=== PATIENT | female | born 1955 ===

== ENCOUNTER 2017-08-10 01:51 | Emergency (ER) | payer MEDICAID ==
--- NOTE | 2017-08-10 01:58 | C.PDOC ---
History Of Present Illness 61 year old female presents to the ED c/o sudden onset of sharp stabbing RLQ and right flank pain associated with nausea and vomiting. Patient rates her pain at 6/10 discomfort. Patient denies fever, chills, diarrhea, dysuria, hematuria, recent travel. Time Seen by Provider: 08/10/17 01:57 History Per: Patient History/Exam Limitations: no limitations Onset/Duration Of Symptoms: Hrs Current Symptoms Are (Timing): Worse Pain Scale Rating Of: 7 Location Of Pain/Discomfort: RLQ Radiation Of Pain To:: Back Quality Of Discomfort: Sharp, Other (stabbing) Associated Symptoms: Nausea, Vomiting Exacerbating Factors: None Alleviating Factors: None Last Bowel Movement: Yesterday Recent travel outside of the [place]: No Additional History Per: Patient Abnormal Vaginal Bleeding: No Past Medical History Reviewed: Historical Data, Nursing Documentation, Vital Signs Vital Signs: Last Vital Signs Temp 98.5 F 08/10/17 02:01 Pulse 57 L 08/10/17 02:22 Resp 14 08/10/17 02:01 BP 177/82 H 08/10/17 02:22 Pulse Ox 97 08/10/17 05:24 - Medical History PMH: No Chronic Diseases Surgical History: No Surg Hx Family History: States: Unknown Family Hx - Social History Hx Alcohol Use: No Hx Substance Use: No - Immunization History Hx Tetanus Toxoid Vaccination: No Hx Influenza Vaccination: No Review Of Systems Constitutional: Negative for: Fever, Chills Cardiovascular: Negative for: Chest Pain Respiratory: Negative for: Shortness of Breath Gastrointestinal: Positive for: Nausea, Vomiting, Abdominal Pain Musculoskeletal: Positive for: Back Pain Skin: Negative for: Rash Neurological: Negative for: Weakness, Numbness Physical Exam - Physical Exam Appears: Non-toxic, In Acute Distress Skin: Warm, Dry Head: Normacephalic Eye(s): bilateral: Normal Inspection Nose: No Discharge Oral Mucosa: Moist Neck: Normal ROM, Supple Chest: Symmetrical Cardiovascular: Rhythm Regular, No Murmur Respiratory: No Rales, No Rhonchi, No Wheezing Gastrointestinal/Abdominal: Soft, Tenderness (RLQ ), No Distention, No Guarding , No Rebound, Other (appendectomy scar, midline surgical scar ) Back: CVA Tenderness (r) Extremity: Normal ROM, No Tenderness, No Swelling Extremity: Bilateral: Atraumatic Neurological/Psych: Oriented x3 Gait: Steady ED Course And Treatment - Laboratory Results Result Diagrams: 08/10/17 02:13 08/10/17 02:13 ECG: Interpreted By Me, Viewed By Me ECG Rhythm: Sinus Rhythm (59), Nonspecific Changes O2 Sat by Pulse Oximetry: 97 Pulse Ox Interpretation: Normal - CT Scan/US CT abd/pelvis Other Rad Studies (CT/US): Read By Radiologist, Radiology Report Reviewed CT/US Interpretation: FINDINGS: Limitations: Motion artifact - mild. Lung bases: 0.2 cm LEFT lower lobe nodule. ABDOMEN: Liver: Mild periportal edema. Gallbladder and bile ducts: Apparent mild asymmetric gallbladder wall thickening or fluid. No. significant ductal dilation.Pancreas: No ductal dilation. No mass. Spleen: No splenomegaly. Adrenals: No mass. Kidneys and ureters: Mild stranding/fluid about RIGHT kidney. Probable RIGHT renal cyst. Few too. small to characterize lesions within LEFT kidney. Mild pelvocaliectasis of RIGHT kidney. Mildly. dilated RIGHT ureter. 0.2 x 0.2 x 0.2 cm calculus within RIGHT distal ureter. Stomach and bowel: Scattered diverticula within colon. No associated inflammatory stranding. Few. segmental areas of probable underdistention of colon. No definite mural thickening. No obstruction. Appendix: No findings to suggest acute appendicitis. PELVIS: Bladder: Unremarkable. Reproductive: Hysterectomy. ABDOMEN and PELVIS: Intraperitoneal space: No significant fluid collection. No free air. Bones/ joints: Hemangioma within spine. No acute fracture. Soft tissues: Unremarkable. Vasculature: Mild atherosclerotic disease. No aneurysm. Lymph nodes: No pathologically enlarged lymph nodes. Other findings: Minimal interlobular septal thickening, nonspecific. IMPRESSION: 1. RIGHT distal ureteral calculus with mild hydroureteronephrosis. 2. Periportal edema, nonspecific. 3. Apparent asymmetric gallbladder wall thickening or fluid. Consider ultrasound. 4. Pulmonary nodule. For low-risk patients, no follow-up is necessary. For high-risk patients. (smoking history or other known risk factors) an optional CT at 12 months could be performed.5. Incidental/non-acute findings are described above. Thank you for allowing us to participate in the care of your patient. Dictated and Authenticated by: Jose A Bojorquez MD. 08/10 5:21 AM Eastern Time ([place] & [place]) Progress Note: Plan: - EKG. - Labs. - Pepcid 20 mg IVP. - IV fluids. - Zofran 4 mg IVP. - UA Reevaluation Time: 05:28 Reassessment Condition: Improved Disposition Counseled Patient/Family Regarding: Studies Performed, Diagnosis, Need For Followup, Rx Given - Disposition Referrals: Endy Coyne Jr., MD [Medical Doctor] - Jared Campbell MD [Staff Provider] - Disposition: HOME/ ROUTINE Disposition Time: 01:58 Condition: FAIR Additional Instructions: Please return if symptoms recur Prescriptions: Ondansetron ODT [Zofran ODT] 1 odt PO BID PRN #10 odt PRN Reason: Nausea/Vomiting Tamsulosin [Flomax] 0.4 mg PO DAILY #15 cap traMADol [Ultram] 50 mg PO QID PRN #20 tab PRN Reason: Pain, Severe (8-10) Instructions: Renal Colic (DC), Kidney Stones (DC), How to Strain Your Urine Print Language: KINYARWANDA - Clinical Impression Clinical Impression: Abdominal pain, Nausea, Vomiting, Renal colic on right side, Kidney stone on right side - Scribe Statement The provider has reviewed the documentation as recorded by the Scribe Kenney Bender All medical record entries made by the Scribe were at my direction and personally dictated by me. I have reviewed the chart and agree that the record accurately reflects my personal performance of the history, physical exam, medical decision making, and the department course for this patient. I have also personally directed, reviewed, and agree with the discharge instructions and disposition.
[2017-08-10] MEDS ORDERED: Sodium Chloride 0.9% 1,000 ML IV ONE ×2 (02:01→05:28)
[2017-08-10 02:23] LABS: BASO % 0.2 % (0.0-2.0); EOS # 0.1 K/uL (0.0-0.7); EOS % 2.1 % (0.0-4.0); HEMOGLOBIN 13.8 g/dL (11.0-16.0); LYMPH # 3.2 K/uL (1.0-4.3); LYMPH % 53.9 % (20.0-40.0); MEAN CELL VOLUME 93.4 fL (81.0-99.0); MEAN CORPUSCULAR HEMOGLOBIN 31.5 pg (27.0-31.0); MEAN CORPUSCULAR HGB CONC 33.8 g/dL (33.0-37.0); MEAN PLATELET VOLUME 9.6 fL (7.2-11.7); MONO # 0.5 K/uL (0.0-0.8); MONO % 8.5 % (0.0-10.0); NEUT # 2.1 K/uL (1.8-7.0); NEUT % 35.3 % (50.0-75.0); NRBC % 0.1 % (0.0-2.0); RBC 4.36 Mil/uL (3.80-5.20); RED CELL DISTRIBUTION WIDTH 13.9 % (11.5-14.5)
[2017-08-10 02:26] LABS: PROTHROMBIN TIME 11.2 SECONDS (9.7-12.2)
[2017-08-10 02:27] LABS: ALB/GLOB RATIO 1.2 (1.0-2.1); ALBUMIN 4.2 g/dL (3.5-5.0); ALT/SGPT 23 U/L (9-52); AST/SGOT 29 U/L (14-36); BLOOD UREA NITROGEN 18 mg/dL (7-17); CALCIUM 9.2 mg/dl (8.6-10.4); GFR AFRICAN-AMERICAN > 60; GFR NON-AFRICAN AMERICAN 56; LIPASE 117 U/L (23-300)
[2017-08-10 02:38] VITALS: BMI 25.0
[2017-08-10 02:54] LABS: SQUAMOUS EPITHIAL 7 /hpf (0-5); URINE AMORPHOUS SEDIMENT OCC /ul (<OCC); URINE BACTERIA RARE (<OCC); URINE BILIRUBIN NEGATIVE (NEGATIVE); URINE BLOOD NEGATIVE (NEGATIVE); URINE CLARITY Hazy (Clear); URINE COLOR Yellow (YELLOW); URINE GLUCOSE (UA) NORMAL (Normal); URINE LEUKOCYTE ESTERASE 1+ Leu/uL (Negative); URINE PROTEIN NEGATIVE (NEGATIVE); URINE UROBILINOGEN NORMAL mg/dL (0.2-1.0)
--- NOTE | 2017-08-10 05:21 | CT ---
EXAM: CT Abdomen and Pelvis With Intravenous Contrast CLINICAL HISTORY: 61 years old, female; Pain; Abdominal pain; Localized; Right lower quadrant (rlq); Additional info: Rlq abd pain TECHNIQUE: Axial computed tomography images of the abdomen and pelvis with intravenous contrast. All CT scans at this facility use one or more dose reduction techniques, viz.: automated exposure control; ma/kV adjustment per patient size (including targeted exams where dose is matched to indication; i.e. head); or iterative reconstruction technique. Coronal and sagittal reformatted images were created and reviewed. CONTRAST: 100 mL of [id number] administered intravenously. COMPARISON: No relevant prior studies available. FINDINGS: Limitations: Motion artifact - mild. Lung bases: 0.2 cm LEFT lower lobe nodule. ABDOMEN: Liver: Mild periportal edema. Gallbladder and bile ducts: Apparent mild asymmetric gallbladder wall thickening or fluid. No significant ductal dilation. Pancreas: No ductal dilation. No mass. Spleen: No splenomegaly. Adrenals: No mass. Kidneys and ureters: Mild stranding/fluid about RIGHT kidney. Probable RIGHT renal cyst. Few too small to characterize lesions within LEFT kidney. Mild pelvocaliectasis of RIGHT kidney. Mildly dilated RIGHT ureter. 0.2 x 0.2 x 0.2 cm calculus within RIGHT distal ureter. Stomach and bowel: Scattered diverticula within colon. No associated inflammatory stranding. Few segmental areas of probable underdistention of colon. No definite mural thickening. No obstruction. Appendix: No findings to suggest acute appendicitis. PELVIS: Bladder: Unremarkable. Reproductive: Hysterectomy. ABDOMEN and PELVIS: Intraperitoneal space: No significant fluid collection. No free air. Bones/joints: Hemangioma within spine. No acute fracture. Soft tissues: Unremarkable. Vasculature: Mild atherosclerotic disease. No aneurysm. Lymph nodes: No pathologically enlarged lymph nodes. Other findings: Minimal interlobular septal thickening, nonspecific. IMPRESSION: 1. RIGHT distal ureteral calculus with mild hydroureteronephrosis. 2. Periportal edema, nonspecific. 3. Apparent asymmetric gallbladder wall thickening or fluid. Consider ultrasound. 4. Pulmonary nodule. For low-risk patients, no follow-up is necessary. For high-risk patients (smoking history or other known risk factors) an optional CT at 12 months could be performed. 5. Incidental/non-acute findings are described above.
[2017-08-10 06:33] VITALS: BP 109/65; PULSE 96; RESP 20; TEMP 98.6; O2SAT 100
[2017-08-10] MEDS ORDERED: Iodixanol 320 MG/ML 100 ML BOTTLE IV ONE (06:42)
--- NOTE | 2017-08-12 02:03 | CARD ---
APPROVED REPORT EKG Measurement Heart [id number] <Conclusion> Sinus bradycardia Possible Left atrial enlargement Junctional ST depression, probably normal Borderline ECG
== END 2017-08-10 06:41 | disposition home or self-care (01) ==
LOC: C.ER 01:51
DX: N20.0 Calculus of kidney (principal); R11.2 Nausea with vomiting, unspecified; R10.9 Unspecified abdominal pain
CPT/HCPCS: 74177; 80053; 81001; 83690; 85025; 85610; 85730; 93005; 96361; 96374; 96375; 99284; J1885; J2405; J7040; Q9967